=== PATIENT | male | born 1950 | race Caucasian/White ===

== ENCOUNTER 2019-08-28 07:40 | Outpatient (CLI) | payer MEDICARE ==
--- NOTE | 2019-08-28 08:37 | ULT ---
RIGHT UPPER QUADRANT ULTRASOUND CLINICAL HISTORY: Elevated liver enzymes. COMPARISON: None FINDINGS: Overlying bowel gas limits image detail on the exam. Liver:There is diffuse increased echogenicity of the liver suspicious for mild fatty infiltration. Th e liver measures 17.5 cm in its greatest length. Intrahepatic bile ducts: No intrahepatic or extrahepatic biliary dilation.; Common bile duct: 6 mm. Gallbladder: Normal appearing. King's sign:None Main portal vein:Patent with hepatopedal flow. Pancreas:Obscured by overlying bowel gas Right kidney: Right kidney measures 9.5 x 5.1 x 6.0 cm. No focal renal lesion or hydronephrosis. Additional findings: None. IMPRESSION: Mild fatty liver.
== END 2019-08-28 07:41 | disposition home or self-care (01) ==
LOC: SCSULT 07:40
PROVIDERS: ATTEND Family Medicine
DX: R74.8 Abnormal levels of other serum enzymes (principal); E80.6 Other disorders of bilirubin metabolism; K76.0 Fatty (change of) liver, not elsewhere classified
CPT/HCPCS: 76705

== ENCOUNTER 2025-01-02 16:43 | Observation (INO) | payer OTHER ==
[~2025-01-02 16:43] MED LIST: Iopamidol-370 76% 500 ML MDV (1 ML CHARGE) ONE
[2025-01-02] MEDS ORDERED: Digoxin 0.5 MG/2 ML AMP ONE (17:37)
[2025-01-02] MEDS ORDERED: Aspirin Chewable 81 MG TAB ONE (17:38)
[2025-01-02] MEDS ORDERED: Magnesium 2 GM/50 ML BAG (IN WATER) ONE (17:39)
[2025-01-02] MEDS ORDERED: dilTIAZem 25 MG/5 ML VIAL ONE (17:39)
[2025-01-02 18:25] LABS: #Basophils Less than 0.03 10x3/uL (0.0-0.2); #Eosinophils 0.11 10x3/uL (0.0-0.7); #Monocytes 0.66 10x3/uL (0.11-0.59); #Neutrophils 6.46 10x3/uL (1.40-6.50); %Basophils 0.1 % (0.0-1.0); %Eosinophils 1.3 % (0.0-10.0); %Lymphocytes 12.5 % (21.0-51.0); %Monocytes 7.9 % (0.0-10.0); %Neutrophils 77.8 % (42.0-75.0); Hematocrit 39.4 % (42.0-52.0); Hemoglobin 12.9 g/dL (14.0-18.0); Mean Corpuscular Hemoglobin 28.9 pg (27.0-31.0); Mean Corpuscular Volume 88.1 fL (78.0-98.0); Platelet Count 186 10x3/uL (130-400); Red Blood Cell (RBC) Count 4.47 mill/uL (4.70-6.10); White Blood Cell (WBC) Count 8.31 10x3/uL (4.8-10.8)
[2025-01-02 18:42] LABS: ALT (SGPT) 14 U/L (Less than 45); AST (SGOT) 22 U/L (11-34); Albumin 3.7 g/dL (3.1-4.5); Alkaline Phosphatase 87 U/L (40-110); Anion Gap 15 mmol/L (10-20); BUN (Urea Nitrogen) 12 mg/dL (8.4-25.7); Bilirubin, Total 1.2 mg/dL (0.3-1.2); Calc. Creatinine Clearance 0 mL/min (70-130); Calcium 9.5 mg/dL (7.8-10.44); Carbon Dioxide 25 mmol/L (23-31); Chloride 93 mmol/L (98-107); Globulin 4.0 g/dL (2.4-3.5); Glucose 166 mg/dL (83-110); Potassium 4.5 mmol/L (3.5-5.1); Sodium 128 mmol/L (136-145)
[2025-01-02] MEDS ORDERED: Enoxaparin 100 MG (1 mL) SYRINGE ONE (22:06)
[2025-01-02 23:50] VITALS: BMI 41.9
[2025-01-02] MEDS ORDERED: Digoxin 0.5 MG/2 ML AMP SLOW IVP SCH (23:59)
[2025-01-03] MEDS ORDERED: Acetaminophen 325 MG TAB PO PRN (00:46)
[2025-01-03] MEDS ORDERED: Ondansetron PF 4 MG/2 ML Vial IVP PRN (00:46)
[2025-01-03 01:14] LABS: Bacteria/HPF None Seen HPF (None Seen); CAUTI Indications for Culture Dysuria,urgency,freq; Glucose, Urine (Dipstick) 300 mg/dL (Negative); Leukocyte 25 Leu/uL (Negative); Protein, Urine (Dipstick) Negative (Neg-Trace); RBC/HPF 0-3 HPF (0-3); Specific Gravity, Urine 1.011 (1.002-1.036)
[2025-01-03 01:15] LABS: Urine Culture Reflex No No
[2025-01-03] MEDS ORDERED: Dextrose 50% Abboject 50 ML SYRINGE SLOW IVP PRN (01:23)
[2025-01-03] MEDS ORDERED: Glucagon 1 MG/ML KIT IM PRN (01:23)
[2025-01-03 07:07] LABS: #Basophils Less than 0.03 10x3/uL (0.0-0.2); #Eosinophils 0.14 10x3/uL (0.0-0.7); #Monocytes 0.72 10x3/uL (0.11-0.59); #Neutrophils 4.32 10x3/uL (1.40-6.50); %Basophils 0.3 % (0.0-1.0); %Eosinophils 2.1 % (0.0-10.0); %Lymphocytes 20.4 % (21.0-51.0); %Monocytes 11.0 % (0.0-10.0); %Neutrophils 65.9 % (42.0-75.0); Hematocrit 37.6 % (42.0-52.0); Hemoglobin 12.6 g/dL (14.0-18.0); Mean Corpuscular Hemoglobin 29.0 pg (27.0-31.0); Mean Corpuscular Volume 86.4 fL (78.0-98.0); Platelet Count 184 10x3/uL (130-400); Red Blood Cell (RBC) Count 4.35 mill/uL (4.70-6.10); White Blood Cell (WBC) Count 6.56 10x3/uL (4.8-10.8)
[2025-01-03 07:25] LABS: Anion Gap 13 mmol/L (10-20); BUN (Urea Nitrogen) 10 mg/dL (8.4-25.7); Calc. Creatinine Clearance 160 mL/min (70-130); Calcium 9.1 mg/dL (7.8-10.44); Carbon Dioxide 27 mmol/L (23-31); Chloride 97 mmol/L (98-107); Glucose 132 mg/dL (83-110); Magnesium 1.5 mg/dL (1.6-2.6); Potassium 3.9 mmol/L (3.5-5.1); Sodium 133 mmol/L (136-145)
[2025-01-03] MEDS: Gabapentin 300 MG CAP PO SCH (08:41)
[2025-01-03] MEDS: Aspirin 81 mg Enteric Coated Tablet PO SCH (08:41)
[2025-01-03] MEDS: Lisinopril 20 MG TAB PO SCH (08:41)
[2025-01-03] MEDS: Metoprolol Succinate XL 100 MG ER.TAB PO SCH (08:41)
[2025-01-03] MEDS: Insulin Glargine 30 UNITS/0.3 ML VIAL SC SCH (08:42)
[2025-01-03] MEDS: Folic Acid 1 MG TAB PO SCH (08:42)
[2025-01-03] MEDS: Furosemide 20 MG (2 mL) VIAL SLOW IVP SCH (08:42)
[2025-01-03] MEDS: Apixaban 5 MG TAB PO SCH (08:42)
[2025-01-03 15:28] VITALS: BP 129/66; TEMP 98
== END 2025-01-03 17:02 | disposition home or self-care (01) ==
LOC: ERS 16:43 → OBS 23:00 → INTOOBSV 23:00
PROVIDERS: ADMIT Internal Medicine; ATTEND Hospitalist
DX: I48.91 Unspecified atrial fibrillation (principal); I10 Essential (primary) hypertension; E11.9 Type 2 diabetes mellitus without complications; E78.5 Hyperlipidemia, unspecified; E87.70 Fluid overload, unspecified; E87.1 Hypo-osmolality and hyponatremia; Z98.890 Other specified postprocedural states; Z91.040 Latex allergy status; Z88.2 Allergy status to sulfonamides; Z79.84 Long term (current) use of oral hypoglycemic drugs; Z79.82 Long term (current) use of aspirin; Z79.4 Long term (current) use of insulin; Z79.899 Other long term (current) drug therapy
CPT/HCPCS: 71045; 71275; 83880; 84484; 85379; 93005; J1160; J1650; J3475; 36415; 36416; 80048; 80053; 81001; 83735; 84443; 85025; 93306; 96365; 96366; 96372; 96375; J1815; J1940; Q9967